=== PATIENT | male | born 1945 | race Caucasian/White ===

== ENCOUNTER 2018-03-06 09:58 | Day surgery (SDC) | payer MEDICARE ==
[~2018-03-06] VITALS: Ht 193 cm; Wt 113.6 kg
[~2018-03-06 09:58] MED LIST: AMLO2.5T PO; B12-1CHW PO; BUME1TAB PO; COUM4TAB7 PO; DIGO0.25 PO; LOTE20TA3 PO; METO100; MULTTAB23 PO; NIAC500T18 PO; OMEP20TA39 PO; POTA20PA PO; SIMV20 PO; TURM450C PO; [UNRECOGNIZED DRUG - CODE] PO
[2018-03-06 10:57] VITALS: BP 147/90; PULSE 59; RESP 18; TEMP 97.9; O2SAT 100
[2018-03-06] MEDS ORDERED: ASCO100029 (11:28)
[2018-03-06] MEDS ORDERED: LISI40TA PO (11:28)
[2018-03-06] MEDS ORDERED: BUME1TAB PO (11:28)
[2018-03-06] MEDS ORDERED: PANT40TA3 PO (11:28)
[2018-03-06] MEDS ORDERED: NIAC500T5 PO (11:28)
[2018-03-06] MEDS ORDERED: VITA10002 PO (11:28)
[2018-03-06] MEDS ORDERED: AMLO5TAB2 PO (11:28)
[2018-03-06] MEDS ORDERED: TURM500C7 (11:28)
[2018-03-06] MEDS ORDERED: DIGO0.25 PO (11:28)
[2018-03-06] MEDS ORDERED: CHOL5000 PO (11:28)
[2018-03-06] MEDS ORDERED: MULTTAB4 (11:28)
[2018-03-06] MEDS ORDERED: MILK500C2 (11:28)
[2018-03-06] MEDS ORDERED: METF500T PO (11:28)
[2018-03-06] MEDS ORDERED: KLOR20TA3 PO (11:28)
[2018-03-06] MEDS ORDERED: METO100T PO (11:28)
[2018-03-06] MEDS ORDERED: SODIUM CHLOR 0.9% 1000 ML IV SCH (11:30)
[2018-03-06 11:37] LABS: HEMATOCRIT 21.9 % (39.0-51.0); HEMOGLOBIN 7.3 GM/DL (13.0-17.0); MEAN CELL VOLUME 81.8 FL (80.0-100.0); MEAN CORPUSCULAR HEMOGLOBIN 27.1 PG (27.0-34.0); MEAN CORPUSCULAR HGB CONC 33.2 % (32.0-36.0); MEAN PLATELET VOLUME 8.8 FL (7.0-11.0); PLATELET COUNT 29 TH/MM3 (150-450); RED BLOOD COUNT 2.68 MIL/MM3 (4.50-5.90); RED CELL DISTRIBUTION WIDTH 20.2 % (11.6-17.2); WHITE BLOOD COUNT 0.7 TH/MM3 (4.0-11.0)
[2018-03-06 11:44] LABS: INTERNATIONAL NORMALIZED RATIO 1.2 RATIO; PROTHROMBIN TIME - PATIENT 11.8 SEC (9.8-11.6)
[2018-03-06 12:17] LABS: ACANTHOCYTES 1+ (NORMAL); LYMPHOCYTES 80 % (9-44); MONOCYTES 4 % (0-8); NEUTROPHIL # MANUAL DIFF 0.1 TH/MM3 (1.8-7.7); POLYS (SEG NEUTROPHILS) 16 % (16-70)
[2018-03-06 12:18] LABS: OVALOCYTES 1+ (NORMAL)
[2018-03-06 12:19] LABS: KERATOCYTES OCC (NORMAL); TEARDROP RBCS 1+ (NORMAL)
[2018-03-06] MEDS ORDERED: MIDAZOLAM HCL 2 MG/2 ML VIAL ONE (12:53)
--- NOTE | 2018-03-06 13:34 | PD.RAD ---
Post CT Procedure Prog Note Pre Procedure Diagnosis: (1) Thrombocytopenia Post Procedure Diagnosis: (1) Thrombocytopenia Procedure Date: Mar 06, 2018 Supervising Radiologist: Nitish Desouza Anesthesia: Conscious Sedation Plan of Activity Patient to Unit: ROPU Patient Condition: Good See PACS Report for procedural detail/treatment Biopsy Imaging Guidance: CT Side: Left Biopsy Procedure: Bone Marrow Site: posterior iliac bone Specimen: Core Biopsy Plan to ROPU then discharge in 2 hours if criteria met. Nitish Desouza MD Mar 06, 2018 13:34
[2018-03-06 13:48] VITALS: BP 138/83; PULSE 60; RESP 18; TEMP 97.9; O2SAT 96
[2018-03-06 14:18] VITALS: BP 142/78; PULSE 81; RESP 16; O2SAT 95
[2018-03-06 14:48] VITALS: BP 138/84; PULSE 60; RESP 19; O2SAT 97
--- NOTE | 2018-03-06 15:01 | RADRPT ---
EXAM DATE: 03/06/2018 2:03 PM EDT AGE/SEX: 72 years / Male INDICATIONS: Pancytopenia CLINICAL DATA: This is the patient's initial encounter. Patient reports that signs and symptoms have been present for 1 day and indicates a pain score of 0/10. MEDICAL/SURGICAL HISTORY: None. None. COMPARISON: [facility] – [place], CT NEEDLE BIOPSY BONE MARROW, 11/10/2013. . SEDATION TIME (min): 25 min BIOPSY SITE: Left bone marrow MEDICATION(S): 3 mg midazolam (Versed) IV 150mcg fentanyl (Sublimaze) IV DEVICE(S): 11 gauge On-Control needle . . PROCEDURE: CT guided Left bone marrow biopsy Prior to the procedure informed consent was obtained. Any appropriate prior imaging studies were rev iewed. Using automated exposure control and adjustment of the mA and/or kV according to patient size , radiation dose was kept as low as reasonably achievable to obtain optimal diagnostic quality images . DICOM format image data is available electronically for review and comparison. The site was prepped in a sterile fashion. Full sterile technique was used, including cap, mask, js rile gloves and gown and a large sterile sheet. Hand hygiene and 2% chlorhexidine and/or betadine/al cohol prep was utilized per protocol for cutaneous antisepsis. The skin and subcutaneous tissues wer e infiltrated with local anesthetic solution. With CT guidance the left posterior iliac bone was localized. Biopsy was performed using the prescrib ed needle as above. Following biopsy marrow aspiration was performed with repeat puncture. Adequate hemostasis was obtained with compression at the puncture site. Conscious sedation was performed with the prescribed dosages and duration as above in the presence of an independent trained radiology nurse to assist in the monitoring of the patient. EKG and oximetry remained stable throughout the procedure. The patient tolerated the procedure well and there were no complications. The patient was sent to Radiology Outpatient Unit in stable condition. CONCLUSION: 1. Uncomplicated CT guided bone marrow aspirate. 2. Uncomplicated CT guided bone marrow biopsy. Electronically signed by: Nitish Desouza MD 03/06/2018 3:00 PM EDT
[2018-03-06 15:18] VITALS: BP 132/79; PULSE 67; RESP 18; O2SAT 98
== END 2018-03-06 15:40 | disposition home or self-care (01) ==
LOC: HRAD 09:58 → HRIP 10:00 → HRAD 15:40
PROVIDERS: ATTEND Internal Medicine Hematology & Oncology
DX: D69.6 Thrombocytopenia, unspecified (principal); D61.818 Other pancytopenia; I10 Essential (primary) hypertension; I48.91 Unspecified atrial fibrillation
CPT/HCPCS: 38222; 77012; 85007; 85027; 85097; 85610; 85730; 88184; 88185; 88237; 88264; 88280; 88305; 88311; 88313; 99152; 99153; C1830; J2250; J3010; J7030